=== PATIENT | female | born 1975 | race Caucasian/White ===

== ENCOUNTER 2022-07-20 13:15 | Inpatient (IN) | payer MEDICAID, SELFPAY ==
[2022-07-20 13:18] VITALS: BP 155/104; PULSE 109; RESP 18; TEMP 36.7; O2SAT 100; BMI 20.9
[2022-07-20] MEDS: LORazepam 1 MG TABLET 2 MG PO (13:44)
--- NOTE | 2022-07-20 13:45 | ED.GENADULT ---
HPI - General Adult General Chief complaint: Psychiatric Symptoms Stated complaint: crisis Time Seen by Provider: 07/20/22 13:44 Source: patient Mode of arrival: ambulatory Limitations: no limitations History of Present Illness HPI narrative: Patient is a 46 year old assigned female at with a history of anxiety presenting to the emergency department today with increased anxiety. Patient states that she feels like cannot do anything right and although she doesn't have any plan to kill herself, if she , she wouldn't care. Patient denies any dizziness, lightheadedness, abdominal pain, nausea, vomiting, fever, chills, blurry vision, double vision, loss of vision, chest pain, difficulty breathing, shortness of breath, back pain, night sweats, pain with urination, increased urinary frequency, increased urinary urgency, blood in her urine or stool, syncope or a near syncopal episode, recent trauma or falls, bowel incontinence, bladder incontinence, bowel retention, bladder retention, or any other complaints at this time. Onset (ago): day(s) Severity: mild Severity scale (1-10): 3 Relieving factors: none Exacerbating factors: none Associated symptoms: denies other symptoms Treatments prior to arrival: none Related Data Home Medications Medication Instructions Recorded Confirmed citalopram 20 mg tablet (Celexa) 1 tab PO DAILY 07/20/22 07/20/22 clonazepam 0.5 mg tablet 2 tab PO BEDTIME PRN Anxiety 07/20/22 07/20/22 dextroamphetamine-amphetamine 20 10 mg PO NEEDED PRN Outbreak 07/20/22 07/20/22 mg tablet dextroamphetamine-amphetamine 20 20 mg PO DAILY 07/20/22 07/20/22 mg tablet Allergies Allergy/AdvReac Type Severity Reaction Status Date / Time amoxicillin Allergy Intermediate Rash Verified 07/20/22 13:21 Review of Systems Constitutional: Constitutional: Reports no additional constitutional complaints, Denies chills, Denies fever(s) and Denies night sweats Eyes: Eyes: Reports no additional eye complaints, Denies blurry vision, Denies change in vision, Denies diplopia, Denies eye discharge, Denies loss of vision and Denies eye pain ENT: Denies dizziness Cardiovascular: Cardiovascular: Reports no additional cardiovascular complaints, Denies chest pain, Denies lightheadedness, Denies Loss of Consciousness and Denies dyspnea Respiratory: Respiratory: Reports no additional respiratory complaints and Denies dyspnea Gastrointestinal: Gastrointestinal: Reports no additional gastrointestinal complaints, Denies abdominal pain, Denies melena, Denies hematochezia, Denies change in bowel habits and Denies change in stool character Genitourinary: Genitourinary: Denies hematuria, Denies urinary frequency, Denies dysuria, Denies urinary incontinence, Denies urinary hesitancy and Denies urinary urgency Musculoskeletal: Musculoskeletal: Reports no additional musculoskeletal complaints, Denies numbness and Denies tingling Neurologic: Denies dizziness, Denies loss of vision, Denies numbness and Denies tingling Psychiatric: Psychiatric: Reports no additional psychiatric complaints Endocrine: Endocrine: Reports no additional endocrine complaints Hematologic/Lymphatic: Hematologic/Lymphatic: Reports no additional hematologic/lymphatic complaints Allergic/Immunologic: Allergic/Immunologic: Reports no additional allergic/immunologic complaints PMFSH Past Medical History Attestation statement: The following information was validated with the patient. Source: old records reviewed Social History Social History Smoked in Last 30 Days: No Use of substances other than those prescribed or required for medical reasons: No Physical Exam ED Vital Signs: Vital Signs - 24 hr 07/20/22 13:18 07/20/22 14:00 Temperature 98.0 F Pulse Rate 109 H Respiratory Rate 18 16 Blood Pressure 155/104 H Pulse Oximetry 100 Oxygen Delivery Method Room Air BMI result Body Mass Index 20.9 Const General: cooperative, no acute distress, alert and awake Nutritional Appearance: well nourished Orientation/consciousness: patient oriented x3 Limitations: no limitations [facility] Head: Yes normal to inspection and Yes atraumatic Ears: hearing grossly normal bilaterally and external ears normal General nose exam: Normal external nose present, no nasal discharge noted and no epistaxis Face and sinus: Yes normal facial exam, No abrasion and No laceration Mouth: Normal oral and palatal mucosa present, no drooling and no muffled voice Eyes General: appearance normal, both eyes and all related structures Periorbital: periorbital findings normal Eyelids: Yes eyelids normal Conjunctivae: conjunctivae normal Pupils: Equal, round and reactive pupils present EOM: EOMs intact bilaterally Neck Neck: Yes normal visual inspection, Yes full ROM and Yes no lymphadenopathy Chest Chest palpation & inspection: normal inspection of the chest Resp Effort & Inspection: normal respiratory effort and able to speak in complete sentences Auscultation: clear to auscultation bilaterally Cardio Rate: regular rate Rhythm: regular rhythm GI Inspection: Yes normal to inspection Neuro General: patient oriented x3 and moves all extremities Cranial nerves: Yes Equal, round and reactive pupils present Cognition (Neuro): normal cognition Motor exam (neuro): 5/5 motor strength present throughout Sensory Exam: Normal double simultaneous stimulation for sensation Coordination: [id number] test normal Psych Appearance: grossly normal Mental Status: mental status grossly normal Affect: Anxious affect present Attitude: cooperative Thought process: Normal thought process present Thought content: Normal thought content present Insight: Good insight present (Psych) Medications Administered Discontinued Medications Generic Name Dose Route Start Last Admin Trade Name Freq PRN Reason Stop Dose Admin Lorazepam 2 mg 07/20/22 13:21 07/20/22 13:44 Lorazepam 1 Mg Tablet PO 07/20/22 13:22 2 mg ONCE ONE Administration Medical Decision Making MDM Narrative Medical decision making narrative: Patient is a 46 year old assigned female at with a history of anxiety presenting to the emergency department today with increased anxiety. Patient's physical exam showed an anxious individual. Patient's blood work was unremarkable. I explained my physical exam findings as well as all test results to the patient. I answered all questions asked by the patient. Patient is awaiting evalution by [facility]. Medical Records Medical records reviewed: Yes I reviewed the patient's medical records. Lab Data Lab results reviewed: Yes I reviewed the patient's lab results. Result diagrams: 07/20/22 14:11 07/20/22 14:11 Labs: Lab Results 07/20/22 07/20/22 07/20/22 Range/Units 13:58 13:58 14:11 WBC 8.0 (4.8-10.8) X10*3/uL RBC 4.29 (4.20-5.50) X10*6/uL Hgb 13.2 (12.0-16.0) g/dl Hct 37.5 (37.0-47.0) % MCV 87.4 (80.0-98.0) fL MCH 30.8 (27.0-33.0) pg MCHC 35.2 H (31.0-35.0) g/dl RDW 12.4 (11.0-16.0) % Plt Count 205 (160-400) X10*3/uL MPV 10.0 (9.4-12.3) fL Immature Gran % (Auto) 0.3 (0.0-0.4) % Neut % (Auto) 75.9 H (45-73) % Lymph % (Auto) 13.9 L (20-40) % Spink % (Auto) 8.6 (2-11) % Eos % (Auto) 0.9 (0-4) % Baso % (Auto) 0.4 (0-2) % Lymph # (Auto) 1.1 L (1.2-4.9) X10*3/uL Spink # (Auto) 0.7 (0.1-1.2) X10*3/uL Eos # (Auto) 0.1 (0.0-0.4) X10*3/uL Baso # (Auto) 0.0 (0.0-0.2) X10*3/uL Abs Immat Gran (auto) 0.02 (0.00-0.03) X10*3/uL Absolute Neuts (auto) 6.1 (2.0-8.3) x10*3/uL Absolute Nucleated RBC 0.000 (0.0-0.012) X10*3/uL Nucleated RBC % (auto) 0.0 (0.0-0.2) /100WBC Sodium (135-145) mmol/L Potassium (3.3-5.1) mmol/L Chloride (96-108) mmol/L Carbon Dioxide (22-29) mmol/L Anion Gap (12-20) BUN (9-16) mg/dL Creatinine (0.5-1.4) mg/dL Estim Creat Clear Calc Estimated GFR Random Glucose (60-115) mg/dL Calcium (8.4-10.2) mg/dL Total Bilirubin (0.0-1.0) mg/dL AST (5-31) U/L ALT (0-31) U/L Alkaline Phosphatase (39-117) U/L Total Protein (6.5-8.0) g/dL Albumin (3.5-5.0) g/dL Urine Test NEGATIVE (NEGATIVE) Salicylates (15-30) mg/dL Urine Opiates Screen Not Detected (Not Detect) Urine Fentanyl Screen Not Detected (Not Detect) Acetaminophen (<30) mcg/mL Ur Barbiturates Screen Not Detected (Not Detect) Ur Phencyclidine Scrn Not Detected (Not Detect) Ur Amphetamines Screen POSITIVE H (Not Detect) U Benzodiazepines Scrn Not Detected (Not Detect) Urine Cocaine Screen Not Detected (Not Detect) U Marijuana (THC) Screen POSITIVE H (Not Detect) Ethyl Alcohol mg/dL COVID-19 (TIGIST) (Negative) COVID-19 Clin Com 07/20/22 07/20/22 Range/Units 14:11 14:17 WBC (4.8-10.8) X10*3/uL RBC (4.20-5.50) X10*6/uL Hgb (12.0-16.0) g/dl Hct (37.0-47.0) % MCV (80.0-98.0) fL MCH (27.0-33.0) pg MCHC (31.0-35.0) g/dl RDW (11.0-16.0) % Plt Count (160-400) X10*3/uL MPV (9.4-12.3) fL Immature Gran % (Auto) (0.0-0.4) % Neut % (Auto) (45-73) % Lymph % (Auto) (20-40) % Spink % (Auto) (2-11) % Eos % (Auto) (0-4) % Baso % (Auto) (0-2) % Lymph # (Auto) (1.2-4.9) X10*3/uL Spink # (Auto) (0.1-1.2) X10*3/uL Eos # (Auto) (0.0-0.4) X10*3/uL Baso # (Auto) (0.0-0.2) X10*3/uL Abs Immat Gran (auto) (0.00-0.03) X10*3/uL Absolute Neuts (auto) (2.0-8.3) x10*3/uL Absolute Nucleated RBC (0.0-0.012) X10*3/uL Nucleated RBC % (auto) (0.0-0.2) /100WBC Sodium 140 (135-145) mmol/L Potassium 3.5 (3.3-5.1) mmol/L Chloride 103 (96-108) mmol/L Carbon Dioxide 28 (22-29) mmol/L Anion Gap 13 (12-20) BUN 10 (9-16) mg/dL Creatinine 0.82 (0.5-1.4) mg/dL Estim Creat Clear Calc 93.4 Estimated GFR > 60 Random Glucose 93 (60-115) mg/dL Calcium 8.5 (8.4-10.2) mg/dL Total Bilirubin 0.6 (0.0-1.0) mg/dL AST 16 (5-31) U/L ALT 13 (0-31) U/L Alkaline Phosphatase 62 (39-117) U/L Total Protein 7.1 (6.5-8.0) g/dL Albumin 4.3 (3.5-5.0) g/dL Urine Test (NEGATIVE) Salicylates < 5.0 L (15-30) mg/dL Urine Opiates Screen (Not Detect) Urine Fentanyl Screen (Not Detect) Acetaminophen < 1 (<30) mcg/mL Ur Barbiturates Screen (Not Detect) Ur Phencyclidine Scrn (Not Detect) Ur Amphetamines Screen (Not Detect) U Benzodiazepines Scrn (Not Detect) Urine Cocaine Screen (Not Detect) U Marijuana (THC) Screen (Not Detect) Ethyl Alcohol < 10 mg/dL COVID-19 (TIGIST) Negative (Negative) COVID-19 Clin Com See Note Discharge Plan Discharge Clinical Impression: Acute anxiety Patient Disposition: Still a Patient Prescriptions: No Action clonazepam 0.5 mg tablet 2 tab PO BEDTIME PRN (Reason: Anxiety) citalopram [Celexa] 20 mg tablet 1 tab PO DAILY dextroamphetamine-amphetamine 20 mg tablet 10 mg PO NEEDED MDD 10 PRN (Reason: Outbreak) dextroamphetamine-amphetamine 20 mg tablet 20 mg PO DAILY
[2022-07-20 14:00] VITALS: RESP 16
[2022-07-20 14:24] LABS: Amphetamine Screen Urine POSITIVE (Not Detect); Barbiturates, Urine Not Detected (Not Detect); Benzodiazepines Screen Urine Not Detected (Not Detect); Cannabinoid Screen Urine POSITIVE (Not Detect); Cocaine Screen Urine Not Detected (Not Detect); Fentanyl, urine Not Detected (Not Detect); Opiate Screen Urine Not Detected (Not Detect); Phencyclidine Screen Urine Not Detected (Not Detect)
[2022-07-20 14:25] LABS: UPreg QC Valid YES; Urine Pregnancy NEGATIVE (NEGATIVE)
[2022-07-20 14:26] LABS: MANUAL DIFF FLAG NO
[2022-07-20 14:39] LABS: Basophils Percent Auto 0.4 % (0-2); Eosinophils Absolute Auto 0.1 X10*3/uL (0.0-0.4); Eosinophils Percent Auto 0.9 % (0-4); Hematocrit 37.5 % (37.0-47.0); Hemoglobin 13.2 g/dl (12.0-16.0); Imm Gran Abs Auto 0.02 X10*3/uL (0.00-0.03); Imm Gran Pct Auto 0.3 % (0.0-0.4); Lymphocytes Absolute Auto 1.1 X10*3/uL (1.2-4.9); Lymphocytes Percent Auto 13.9 % (20-40); Mean Corpuscular HGB Conc 35.2 g/dl (31.0-35.0); Mean Corpuscular Hemoglobin 30.8 pg (27.0-33.0); Mean Corpuscular Volume 87.4 fL (80.0-98.0); Monocytes Absolute Auto 0.7 X10*3/uL (0.1-1.2); Monocytes Percent Auto 8.6 % (2-11); Neutrophils Absolute Auto 6.1 x10*3/uL (2.0-8.3); Neutrophils Percent Auto 75.9 % (45-73); Platelet Count 205 X10*3/uL (160-400); Red Blood Count 4.29 X10*6/uL (4.20-5.50); Red Cell Distribution Width 12.4 % (11.0-16.0)
[2022-07-20 14:51] LABS: Acetaminophen LAB < 1 mcg/mL (<30); Alanine Aminotransferase 13 U/L (0-31); Albumin Level 4.3 g/dL (3.5-5.0); Alkaline Phosphatase 62 U/L (39-117); Anion Gap 13 (12-20); Aspartate Amino Transferase 16 U/L (5-31); Bilirubin Total 0.6 mg/dL (0.0-1.0); Blood Urea Nitrogen 10 mg/dL (9-16); Calcium 8.5 mg/dL (8.4-10.2); Carbon Dioxide 28 mmol/L (22-29); Chloride 103 mmol/L (96-108); Creatinine Clr Calc Pharmacy 93.4; Estimated Glomerular Filt Rate > 60; Ethanol < 10 mg/dL; Glucose Random 93 mg/dL (60-115); Potassium 3.5 mmol/L (3.3-5.1); Salicylate < 5.0 mg/dL (15-30); Sodium 140 mmol/L (135-145); Total Protein 7.1 g/dL (6.5-8.0)
[2022-07-20 14:55] LABS: COVID-19 Test Negative (Negative); IDNOW Serial# BCCEAD1C
--- NOTE | 2022-07-20 16:57 | MHC.CARE ---
Pt's called asking for an update on pt. He reported pt has been very depressed and believes medications aren't effective. Pt reported to her that she wishes she was which was concerning for as he has never heard her speak in this manner. Pt's expressed that she is the nicest person i've ever been on a date with, that is why I put a ring on it. She is a ray of sunshine and typically such a happy person and the best step mom to my son . states he has never heard of any suicide attempt hx. Everyone loves her, she has very special friends and has been working at her job for 21 years . He states pt has been struggling with racing thoughts and although she has a therapy apt tomorrow her therapist encouraged her to come here if she wasn't feeling any better. Pt ask to call him for an update and is supportive in her seeking help.
--- NOTE | 2022-07-20 20:09 | PC.NURSE ---
Pts Kleber alexander, called for an update. Kleber updated on pts plan of care with pts verbal consent. Kleber can be reached at [phone].
[2022-07-20] MEDS: clonazePAM 1 MG TABLET PO (21:57)
--- NOTE | 2022-07-20 22:20 | PC.NURSE ---
Pt exhibited increased anxiety/panic attack. Reports unable to move hands. Bilateral radial pulses present. RR rate 26. Klonopin administered, verbal reassurance, and redirection provided with success. Pt reports I want be home with Kleber. Pt provided phone and called Kleber nunn) for positive support. Pt aware of plan of care.
--- NOTE | 2022-07-20 23:31 | ECG_ITS ---
Test Reason : MED CLEARANCE Blood Pressure : / mmHG Vent. Rate : 089 BPM Atrial Rate : 089 BPM P-R Int : 150 ms QRS Dur : 078 ms QT Int : 414 ms P-R-T Axes : 097 095 105 degrees QTc Int : 503 ms Suspect limb lead reversal, interpretation assumes no reversal Normal sinus rhythm Rightward axis Nonspecific ST and T wave abnormality Prolonged QT Abnormal ECG No previous ECGs available advise repeat study Referred By: David Clark Electronically Signed By:JOHNATHON PARKER MD
--- NOTE | 2022-07-20 23:32 | PC.NURSE ---
Nurse to nurse report provided to RN. Elizabeth Pt to be transferred to once EKG results are available per JORGE Johnson. Pt aware of plan of care.
[2022-07-20 23:50] VITALS: BP 122/84; PULSE 100; RESP 18; TEMP 36.2; O2SAT 98
[2022-07-21] MEDS: hydrOXYzine HCL 25 MG TABLET PO (00:33)
[2022-07-21] MEDS: traZODone HCL 50 MG TABLET PO (00:33)
--- NOTE | 2022-07-21 01:11 | PC.NURSE ---
pt signed a 3 day notice on 07/21/22. up on monday07/26/22
--- NOTE | 2022-07-21 01:55 | PC.ADMIT ---
PT is a 46 year old female, admitted to unit at 2350 by wheel chair on CV, (signed a 3 day notice on 07/21 up on 07/26) from [facility]. PT self presented to [facility] for increased depression and anxiety and vague SI. During admission interview PT tearful at times, PT stated that anxiety and depression are '10/10', PT states she 'feels safe on unit, but does not want to share a room.' PT denies A/V hallucinations. 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 PT had thyroid surgery in May. PT prosthetic leg checked for contraband and then given to PT. PT put on 1:1 due to prosthetic leg. PT tox screen + for THC and amphetamines. PT is Covid -, declined flu vaccine, and spiritual visit. PT currently asleep in room.
[2022-07-21 08:00] VITALS: BP 110/71; PULSE 103; TEMP 36.3
[2022-07-21] MEDS: Amphetamine Mixed Salts 20 MG TABLET PO (08:52)
[2022-07-21] MEDS: Escitalopram Oxalate 10 MG TABLET PO (08:52)
[2022-07-21 09:28] LABS: Estimated Average Glucose 97 mg/dL
[2022-07-21 09:30] LABS: Alanine Aminotransferase 13 U/L (0-31); Albumin Level 4.1 g/dL (3.5-5.0); Alkaline Phosphatase 53 U/L (39-117); Anion Gap 11 (12-20); Aspartate Amino Transferase 14 U/L (5-31); Bilirubin Total 0.9 mg/dL (0.0-1.0); Blood Urea Nitrogen 9 mg/dL (9-16); Calcium 8.1 mg/dL (8.4-10.2); Carbon Dioxide 27 mmol/L (22-29); Chloride 105 mmol/L (96-108); Cholesterol 168 mg/dL; Creatinine Clr Calc Pharmacy 99.5; Estimated Glomerular Filt Rate > 60; Glucose Fasting 90 mg/dL (60-99); HDL Cholesterol 59 mg/dL; LDL Cholesterol Calculated 86 mg/dl; Potassium 3.3 mmol/L (3.3-5.1); Sodium 140 mmol/L (135-145); Thyroid Stimulating Hormone 1.04 uIU/mL (0.32-4.0); Total Protein 6.8 g/dL (6.5-8.0); Triglycerides 115 mg/dL
[2022-07-21 09:41] LABS: Folate 17.1 ng/mL (> or = 4.0); Vitamin B12 327 pg/mL (200-900)
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
[2022-07-21 17:12] VITALS: BP 110/75; PULSE 104; RESP 16; TEMP 36.8; O2SAT 97
[2022-07-22 08:00] VITALS: BP 107/65; PULSE 98; TEMP 36.9
[2022-07-22] MEDS: Escitalopram Oxalate 10 MG TABLET PO (09:10)
[2022-07-22] MEDS: Amphetamine Mixed Salts 20 MG TABLET PO (09:11)
[2022-07-22] MEDS: hydrOXYzine HCL 25 MG TABLET PO (14:26)
--- NOTE | 2022-07-22 16:00 | HO.PSYCHPN ---
Subjective Subjective Date of Service: 07/22/22 Reason For Visit: SI Subjective Notes: Conditional Voluntary and 3 Day Healthcare Proxy: No Guardianship: No Medical Problems Affecting Mental Status: No Interim History: Met with pt and Vasu [facility]. Pt reviewed stressors and precipitants to admission. Several serious medical and psychosocial situations. Discussed potential interventions. Collateral communication with Dr. Hills for consultation. Validation of calcium dosing from Dr. Ricks's office [phone]. They request an updated Calcium and Albumin Level. Medication Compliance: Yes Side effects from medications: No Attending Groups: No Review of Systems Acute medical concerns: No Medical Review of Systems: unchanged Mental Status Exam Mental Status Exam Patient Appearance: Fatigued and Appropriate Patient Orientation: Person, Place, Time and Situation Level of Consciousness: Drowsy and Alert Patient Behavior: Talkative, Cooperative, Anxious, Fatigued, Distractible and Good Eye Contact Mood Description: Depressed and Anxious Affect Description: Anxious Patient Cognition Impaired: No Ability to Follow Directions: Good Speech Pattern: Spontaneous Speech Memory Description: Intact Hallucinations: None Delusions: Not Present Perceptual Disturbances: Depersonalization and Derealization Thought Process: Rumination Thought Content: positive for Circumstantial and positive for Perseveration Depressive Symptoms: Increased Anxiety and Thoughts of /Suicide Judgement: Fair Diagnostics Vital Signs (24Hr): Vital Signs - 24 hr 07/21/22 17:12 07/22/22 08:00 Temperature 98.2 F 98.4 F Pulse Rate 104 H 98 Respiratory Rate 16 Blood Pressure 110/75 107/65 Pulse Oximetry 97 Oxygen Delivery Method Room Air BMI result Body Mass Index 20.9 Labs Results: 07/20/22 14:11 07/21/22 08:17 Labs: Laboratory Results - last 48 hr 07/21/22 07/21/22 07/21/22 08:17 08:17 08:17 Sodium 140 Potassium 3.3 Chloride 105 Carbon Dioxide 27 Anion Gap 11 L BUN 9 Creatinine 0.77 Estim Creat Clear Calc 99.5 Estimated GFR > 60 Fasting Glucose 90 Estimat Average Glucose 97 Hemoglobin A1c % 5.0 Calcium 8.1 L Total Bilirubin 0.9 AST 14 ALT 13 Alkaline Phosphatase 53 Total Protein 6.8 Albumin 4.1 Triglycerides 115 Cholesterol 168 LDL Cholesterol, Calc 86 HDL Cholesterol 59 Vitamin B12 327 Folate 17.1 TSH 1.04 Medications Medications Current Medications Acetaminophen (Acetaminophen 325 Mg Tablet) 650 mg PO Q6H PRN PRN Reason: Headache/Pain Mild Scale (1-3) Al Hydroxide/Mg Hydroxide (Magnesium Hydrox/Alum Hydrox 30 Ml Oral.Susp) 30 ml PO Q6H PRN PRN Reason: Heartburn/Nausea Amphetamine/Dextroamphetamine (Amphetamine Mixed Salts 20 Mg Tablet) 10 mg PO ONCE PRN PRN Reason: DIRECTED Amphetamine/Dextroamphetamine (Amphetamine Mixed Salts 20 Mg Tablet) 20 mg PO DAILY [facility] Last Admin: 07/22/22 09:11 Dose: 20 mg Calcium Carbonate (Calcium Carbonate 500 Mg Tablet) 500 mg PO QID [facility] Last Admin: 07/22/22 12:24 Dose: 500 mg Clonazepam (Clonazepam 1 Mg Tablet) 1 mg PO BEDTIME PRN PRN Reason: Anxiety Last Admin: 07/20/22 21:57 Dose: 1 mg Escitalopram Oxalate (Escitalopram Oxalate 10 Mg Tablet) 10 mg PO DAILY [facility] Last Admin: 07/22/22 09:10 Dose: 10 mg Hydroxyzine HCl (Hydroxyzine Hcl 25 Mg Tablet) 25 mg PO Q6H PRN PRN Reason: Anxiety Last Admin: 07/22/22 14:26 Dose: 25 mg Magnesium Hydroxide (Milk Of Magnesia 30 Ml Oral.Susp) 30 ml PO DAILY PRN PRN Reason: Constipation Trazodone HCl (Trazodone Hcl 50 Mg Tablet) 50 mg PO BEDTIME PRN PRN Reason: Insomnia Last Admin: 07/21/22 00:33 Dose: 50 mg Allergies Allergies Allergy/AdvReac Type Severity Reaction Status Date / Time amoxicillin Allergy Intermediate Rash Verified 07/20/22 13:21 Assessment & Plan Assessment & Plan (1) Acute anxiety: Status: Acute Code(s): F41.9 - Anxiety disorder, unspecified (2) Major depressive disorder, recurrent severe without psychotic features: Status: Acute Code(s): F33.2 - Major depressive disorder, recurrent severe without psychotic features (3) PTSD (post-traumatic stress disorder): Status: Acute Code(s): F43.10 - Post-traumatic stress disorder, unspecified Plan 46 yo female, hx of depression, anxiety, SI with several medical and psychosocial stressors to manage at the current time. Plan: Continue current regime Collateral contact to providers for information and treatment planning. Out patient referral for psychotherapy. 07/22/22 Calcium, Albumin Increase Lexapro to 20 mg daily. Will begin a search for psychotherapist for pt. I spent minutes with the patient and/or on the patient floor today, greater than?50% of which was spent counseling/coordinating care. Patient educated on: therapeutic strategies Informed Consent: understands Reason for contiued inpatient stay Substantial Risk for: rapid decompensation
[2022-07-22 17:26] VITALS: BP 119/67; PULSE 98; TEMP 36.7; O2SAT 98
[2022-07-22] MEDS: traZODone HCL 50 MG TABLET PO (22:14)
[2022-07-22] MEDS: clonazePAM 1 MG TABLET PO (22:14)
[2022-07-23 08:00] VITALS: BP 114/68; PULSE 99; TEMP 37
[2022-07-23] MEDS: Escitalopram Oxalate 20 MG TABLET PO (08:41)
[2022-07-23] MEDS: Amphetamine Mixed Salts 20 MG TABLET PO (08:41)
[2022-07-23 09:30] LABS: Albumin Level 4.3 g/dL (3.5-5.0)
--- NOTE | 2022-07-23 13:47 | P.PNPSI_ITS ---
Subjective Subjective Date of Service: 07/23/22 Reason For Visit: SI Subjective Notes: 3 Day Interim History: Chart reviewed. Discussed with Nursing. Overall discussed at length significant stressors. Discussed her relationship, benjamin's children, recent medical issues and surgeries, feeling more depressed, less of a sense of humor, being angry at God, which is unusual for her. No active SI. Sleep is okay. Energy okay. Appetite okay. Regarding past medications has been on Prozac, Luvox, Zoloft, Wellbutrin and tricyclic antidepressant. Reported getting a rash in the past on generic citalopram. Would like to consider alternative medication to Lexapro. Will review in more detail tomorrow. Medication Compliance: Yes Side effects from medications: No Attending Groups: Intermittent Review of Systems Acute medical concerns: No Review of Systems Review of Systems nil acute Mental Status Exam Mental Status Exam Narrative: Pleasant. Engaged. Articulate. Verbose. Depressed and tearful at times. Also utilizes humor as a defense. No active SI. Does have some intermittent hopelessness. No HI. No agitation or psychosis. Insight and judgment good Diagnostics Vital Signs (24Hr): Vital Signs - 24 hr 07/22/22 17:26 07/23/22 08:00 Temperature 98.1 F 98.6 F Pulse Rate 98 99 Blood Pressure 119/67 114/68 Pulse Oximetry 98 Oxygen Delivery Method Room Air BMI result Body Mass Index 20.9 Labs Results: 07/20/22 14:11 07/21/22 08:17 Labs: Laboratory Results - last 48 hr 07/23/22 08:24 Calcium 9.0 D Albumin 4.3 Medications Medications Current Medications Acetaminophen (Acetaminophen 325 Mg Tablet) 650 mg PO Q6H PRN PRN Reason: Headache/Pain Mild Scale (1-3) Al Hydroxide/Mg Hydroxide (Magnesium Hydrox/Alum Hydrox 30 Ml Oral.Susp) 30 ml PO Q6H PRN PRN Reason: Heartburn/Nausea Amphetamine/Dextroamphetamine (Amphetamine Mixed Salts 20 Mg Tablet) 10 mg PO ONCE PRN PRN Reason: DIRECTED Amphetamine/Dextroamphetamine (Amphetamine Mixed Salts 20 Mg Tablet) 20 mg PO DAILY [facility] Last Admin: 07/23/22 08:41 Dose: 20 mg Calcium Carbonate (Calcium Carbonate 500 Mg Tablet) 500 mg PO QID [facility] Last Admin: 07/23/22 08:41 Dose: 500 mg Clonazepam (Clonazepam 1 Mg Tablet) 1 mg PO BEDTIME PRN PRN Reason: Anxiety Last Admin: 07/22/22 22:14 Dose: 1 mg Escitalopram Oxalate (Escitalopram Oxalate 20 Mg Tablet) 20 mg PO DAILY [facility] Last Admin: 07/23/22 08:41 Dose: 20 mg Hydroxyzine HCl (Hydroxyzine Hcl 25 Mg Tablet) 25 mg PO Q6H PRN PRN Reason: Anxiety Last Admin: 07/22/22 14:26 Dose: 25 mg Magnesium Hydroxide (Milk Of Magnesia 30 Ml Oral.Susp) 30 ml PO DAILY PRN PRN Reason: Constipation Trazodone HCl (Trazodone Hcl 50 Mg Tablet) 50 mg PO BEDTIME PRN PRN Reason: Insomnia Last Admin: 07/22/22 22:14 Dose: 50 mg Allergies Allergies Allergy/AdvReac Type Severity Reaction Status Date / Time amoxicillin Allergy Intermediate Rash Verified 07/20/22 13:21 Assessment & Plan Assessment & Plan (1) Acute anxiety: Status: Acute Code(s): F41.9 - Anxiety disorder, unspecified (2) Major depressive disorder, recurrent severe without psychotic features: Status: Acute Code(s): F33.2 - Major depressive disorder, recurrent severe without psychotic features (3) PTSD (post-traumatic stress disorder): Status: Acute Code(s): F43.10 - Post-traumatic stress disorder, unspecified Plan 46 yo female, hx of depression, anxiety, SI with several medical and psyc hosocial stressors to manage at the current time. Plan: Continue current regime Collateral contact to providers for information and treatment planning. Out patient referral for psychotherapy. 07/22/22 Calcium, Albumin Increase Lexapro to 20 mg daily. Will begin a search for psychotherapist for pt. 07/23/22: past medications has been on Prozac, Luvox, Zoloft, Wellbutrin and tricyclic antidepressant. Reported getting a rash in the past on generic citalopram. Would like to consider alternative medication to Lexapro. Will review in more detail tomorrow. I spent minutes with the patient and/or on the patient floor today, greater than?50% of which was spent counseling/coordinating care. Reason for contiued inpatient stay Substantial Risk for: rapid decompensation
[2022-07-23] MEDS: hydrOXYzine HCL 25 MG TABLET PO ×2 (14:07→20:47)
[2022-07-23 16:33] VITALS: BP 111/76; PULSE 109; RESP 18; TEMP 36.2; O2SAT 99
[2022-07-23] MEDS: clonazePAM 1 MG TABLET PO (20:19)
[2022-07-23] MEDS: traZODone HCL 50 MG TABLET PO (20:47)
[2022-07-24 08:00] VITALS: BP 116/66; PULSE 91; TEMP 36.6
[2022-07-24] MEDS: Escitalopram Oxalate 20 MG TABLET PO (09:32)
[2022-07-24] MEDS: Amphetamine Mixed Salts 20 MG TABLET PO (09:32)
--- NOTE | 2022-07-24 11:22 | HO.PSYCHPN ---
Subjective Subjective Date of Service: 07/24/22 Reason For Visit: SI Interim History: No significant events since yesterday. Continues to feel depressed and anxious. Reviewed medications and will start Effexor as augmentation strategy. Risks and benefits discussed. Also reading a book mindfulness for beginners. Sleep okay. No SI. No HI. Taking care of ADLs Medication Compliance: Yes Side effects from medications: No Attending Groups: Intermittent Review of Systems Acute medical concerns: No Review of Systems Review of Systems nil acute Mental Status Exam Mental Status Exam Narrative: Pleasant. Engaged. Articulate. Verbose. Depressed and tearful at times, but slightly less than yesterday. Also utilizes humor as a defense. No active SI. Does have some intermittent hopelessness. No HI. No agitation or psychosis. Insight and judgment good Diagnostics Vital Signs (24Hr): Vital Signs - 24 hr 07/23/22 16:33 Temperature 97.2 F Pulse Rate 109 H Respiratory Rate 18 Blood Pressure 111/76 Pulse Oximetry 99 Oxygen Delivery Method Room Air BMI result Body Mass Index 20.9 Labs Results: 07/20/22 14:11 07/21/22 08:17 Labs: Laboratory Results - last 48 hr 07/23/22 08:24 Calcium 9.0 D Albumin 4.3 Medications Medications Current Medications Acetaminophen (Acetaminophen 325 Mg Tablet) 650 mg PO Q6H PRN PRN Reason: Headache/Pain Mild Scale (1-3) Al Hydroxide/Mg Hydroxide (Magnesium Hydrox/Alum Hydrox 30 Ml Oral.Susp) 30 ml PO Q6H PRN PRN Reason: Heartburn/Nausea Amphetamine/Dextroamphetamine (Amphetamine Mixed Salts 20 Mg Tablet) 10 mg PO ONCE PRN PRN Reason: DIRECTED Amphetamine/Dextroamphetamine (Amphetamine Mixed Salts 20 Mg Tablet) 20 mg PO DAILY [facility] Last Admin: 07/24/22 09:32 Dose: 20 mg Calcium Carbonate (Calcium Carbonate 500 Mg Tablet) 500 mg PO QID [facility] Last Admin: 07/24/22 09:32 Dose: 500 mg Clonazepam (Clonazepam 1 Mg Tablet) 1 mg PO BEDTIME PRN PRN Reason: Anxiety Last Admin: 07/23/22 20:19 Dose: 1 mg Escitalopram Oxalate (Escitalopram Oxalate 20 Mg Tablet) 20 mg PO DAILY [facility] Last Admin: 07/24/22 09:32 Dose: 20 mg Hydroxyzine HCl (Hydroxyzine Hcl 25 Mg Tablet) 25 mg PO Q6H PRN PRN Reason: Anxiety Last Admin: 07/23/22 20:47 Dose: 25 mg Magnesium Hydroxide (Milk Of Magnesia 30 Ml Oral.Susp) 30 ml PO DAILY PRN PRN Reason: Constipation Trazodone HCl (Trazodone Hcl 50 Mg Tablet) 50 mg PO BEDTIME PRN PRN Reason: Insomnia Last Admin: 07/23/22 20:47 Dose: 50 mg Venlafaxine HCl (Venlafaxine Hcl Er 75 Mg Cap.Er.24h) 75 mg PO DAILY [facility] Allergies Allergies Allergy/AdvReac Type Severity Reaction Status Date / Time amoxicillin Allergy Intermediate Rash Verified 07/20/22 13:21 Assessment & Plan Assessment & Plan (1) Acute anxiety: Status: Acute Code(s): F41.9 - Anxiety disorder, unspecified (2) Major depressive disorder, recurrent severe without psychotic features: Status: Acute Code(s): F33.2 - Major depressive disorder, recurrent severe without psychotic features (3) PTSD (post-traumatic stress disorder): Status: Acute Code(s): F43.10 - Post-traumatic stress disorder, unspecified Plan 46 yo female, hx of depression, anxiety, SI with several medical and psychosocial stressors to manage at the current time. Plan: Continue current regime Collateral contact to providers for information and treatment planning. Out patient referral for psychotherapy. 07/22/22 Calcium, Albumin Increase Lexapro to 20 mg daily. Will begin a search for psychotherapist for pt. 07/23/22: past medications has been on Prozac, Luvox, Zoloft, Wellbutrin and tricyclic antidepressant. Reported getting a rash in the past on generic citalopram. Would like to consider alternative medication to Lexapro. Will review in more detail tomorrow. 07/24/2022: Start Effexor 75 mg I spent minutes with the patient and/or on the patient floor today, greater than?50% of which was spent counseling/coordinating care. Reason for contiued inpatient stay Substantial Risk for: inability to function
[2022-07-24] MEDS: Venlafaxine HCl ER 75 MG CAP.ER.24H PO (13:32)
[2022-07-24 18:00] VITALS: BP 120/84; PULSE 107; RESP 20; TEMP 36.6; O2SAT 99
[2022-07-24] MEDS: traZODone HCL 50 MG TABLET PO (20:46)
[2022-07-24] MEDS: clonazePAM 1 MG TABLET PO (20:46)
[2022-07-24] MEDS: hydrOXYzine HCL 25 MG TABLET PO (20:46)
[2022-07-25 08:00] VITALS: BP 122/71; PULSE 94; TEMP 36.2
[2022-07-25] MEDS: Venlafaxine HCl ER 75 MG CAP.ER.24H PO (08:31)
[2022-07-25] MEDS: Amphetamine Mixed Salts 20 MG TABLET PO (08:31)
[2022-07-25] MEDS: Escitalopram Oxalate 20 MG TABLET PO (08:31)
--- NOTE | 2022-07-25 16:46 | PM.PSYDC ---
DS: Providers Provider Date of Service: 07/25/22 Date of admission: 07/20/22 23:04 Date of discharge: 07/25/22 Primary care physician: Unknown Physician Admitting clinician: Neeru Saucedo Attending physician on admission: Titi Leach Attending physician on discharge: Titi Leach Discharging clinician: Neeru Saucedo DS: Diagnosis Discharge Diagnosis (1) Acute anxiety: Status: Acute (2) Major depressive disorder, recurrent severe without psychotic features: Status: Acute (3) PTSD (post-traumatic stress disorder): Status: Acute DS: Medications Discharge Medications Home Medications: Home Medications Medication Instructions Recorded Confirmed clonazepam 0.5 mg tablet 2 tab PO BEDTIME PRN Anxiety 07/20/22 07/20/22 dextroamphetamine-amphetamine 20 10 mg PO NEEDED PRN Outbreak 07/20/22 07/20/22 mg tablet dextroamphetamine-amphetamine 20 20 mg PO DAILY 07/20/22 07/20/22 mg tablet Previous Rx's Medication Instructions Recorded calcium carbonate 500 mg calcium 500 mg PO QID #0 tabs 07/25/22 (1,250 mg) tablet (Oyster Shell Calcium 500) escitalopram oxalate 20 mg tablet 20 mg PO DAILY #30 tabs 07/25/22 venlafaxine 75 mg capsule,extended 75 mg PO DAILY #30 caps 07/25/22 release 24 hr Mental Status Exam Mental Status Exam Patient Appearance: Fatigued and Appropriate Patient Orientation: Person, Place, Time and Situation Level of Consciousness: Drowsy and Alert Patient Behavior: Talkative, Cooperative, Anxious, Fatigued, Distractible and Good Eye Contact Mood Description: Apprehensive Affect Description: Apprehensive Patient Cognition Impaired: No Ability to Follow Directions: Good Speech Pattern: Spontaneous Speech Memory Description: Intact Hallucinations: None Delusions: Not Present Perceptual Disturbances: Depersonalization and Derealization Thought Process: Rumination Thought Content: positive for Circumstantial and positive for Perseveration Depressive Symptoms: Increased Anxiety Judgement: Good Data Data Completed and Pending Completed studies during hospitalization [Text1]: 07/20/22 07/20/22 07/20/22 13:58 13:58 14:11 WBC 8.0 RBC 4.29 Hgb 13.2 Hct 37.5 MCV 87.4 MCH 30.8 MCHC 35.2 H RDW 12.4 Plt Count 205 MPV 10.0 Immature Gran % (Auto) 0.3 Neut % (Auto) 75.9 H Lymph % (Auto) 13.9 L [place] % (Auto) 8.6 Eos % (Auto) 0.9 Baso % (Auto) 0.4 Lymph # (Auto) 1.1 L [place] # (Auto) 0.7 Eos # (Auto) 0.1 Baso # (Auto) 0.0 Abs Immat Gran (auto) 0.02 Absolute Neuts (auto) 6.1 Absolute Nucleated RBC 0.000 Nucleated RBC % (auto) 0.0 Sodium Potassium Chloride Carbon Dioxide Anion Gap BUN Creatinine Estim Creat Clear Calc Estimated GFR Random Glucose Fasting Glucose Estimat Average Glucose Hemoglobin A1c % Calcium Total Bilirubin AST ALT Alkaline Phosphatase Total Protein Albumin Triglycerides Cholesterol LDL Cholesterol, Calc HDL Cholesterol Vitamin B12 Folate TSH Urine Test NEGATIVE Salicylates Urine Opiates Screen Not Detected Urine Fentanyl Screen Not Detected Acetaminophen Ur Barbiturates Screen Not Detected Ur Phencyclidine Scrn Not Detected Ur Amphetamines Screen POSITIVE H U Benzodiazepines Scrn Not Detected Urine Cocaine Screen Not Detected U Marijuana (THC) Screen POSITIVE H Ethyl Alcohol COVID-19 ([facility]) COVID-19 Clin Com 07/20/22 07/20/22 07/21/22 14:11 14:17 08:17 WBC RBC Hgb Hct MCV MCH MCHC RDW Plt Count MPV Immature Gran % (Auto) Neut % (Auto) Lymph % (Auto) [place] % (Auto) Eos % (Auto) Baso % (Auto) Lymph # (Auto) [place] # (Auto) Eos # (Auto) Baso # (Auto) Abs Immat Gran (auto) Absolute Neuts (auto) Absolute Nucleated RBC Nucleated RBC % (auto) Sodium 140 140 Potassium 3.5 3.3 Chloride 103 105 Carbon Dioxide 28 27 Anion Gap 13 11 L BUN 10 9 Creatinine 0.82 0.77 Estim Creat Clear Calc 93.4 99.5 Estimated GFR > 60 > 60 Random Glucose 93 Fasting Glucose 90 Estimat Average Glucose Hemoglobin A1c % Calcium 8.5 8.1 L Total Bilirubin 0.6 0.9 AST 16 14 ALT 13 13 Alkaline Phosphatase 62 53 Total Protein 7.1 6.8 Albumin 4.3 4.1 Triglycerides 115 Cholesterol 168 LDL Cholesterol, Calc 86 HDL Cholesterol 59 Vitamin B12 Folate TSH 1.04 Urine Test Salicylates < 5.0 L Urine Opiates Screen Urine Fentanyl Screen Acetaminophen < 1 Ur Barbiturates Screen Ur Phencyclidine Scrn Ur Amphetamines Screen U Benzodiazepines Scrn Urine Cocaine Screen U Marijuana (THC) Screen Ethyl Alcohol < 10 COVID-19 ([facility]) Negative COVID-19 Clin Com See Note 07/21/22 07/21/22 07/23/22 08:17 08:17 08:24 WBC RBC Hgb Hct MCV MCH MCHC RDW Plt Count MPV Immature Gran % (Auto) Neut % (Auto) Lymph % (Auto) [place] % (Auto) Eos % (Auto) Baso % (Auto) Lymph # (Auto) [place] # (Auto) Eos # (Auto) Baso # (Auto) Abs Immat Gran (auto) Absolute Neuts (auto) Absolute Nucleated RBC Nucleated RBC % (auto) Sodium Potassium Chloride Carbon Dioxide Anion Gap BUN Creatinine Estim Creat Clear Calc Estimated GFR Random Glucose Fasting Glucose Estimat Average Glucose 97 Hemoglobin A1c % 5.0 Calcium 9.0 D Total Bilirubin AST ALT Alkaline Phosphatase Total Protein Albumin 4.3 Triglycerides Cholesterol LDL Cholesterol, Calc HDL Cholesterol Vitamin B12 327 Folate 17.1 TSH Urine Test Salicylates Urine Opiates Screen Urine Fentanyl Screen Acetaminophen Ur Barbiturates Screen Ur Phencyclidine Scrn Ur Amphetamines Screen U Benzodiazepines Scrn Urine Cocaine Screen U Marijuana (THC) Screen Ethyl Alcohol COVID-19 ([facility]) COVID-19 Clin Com DS: Summary Hospital Course Hospital Course: Admission to adult psychiatry for exacerbation of recurrent major depression, anxiety, PTSD and multiple psychosocial stressors. Lexapro was interchanged for Celexa, Venlafaxine, Klonopin, Adderall were continued. Pt utilized the milieu for therapy and support to process current issues and concerns prior to discharge. Time spent discussing smoking cessation with patient: 3 to 10 minutes Status at Discharge Functional status at discharge: independent ambulation Overall status at discharge: patient is progressing back to baseline Time Spent with Patient Time attestation: Total time spent providing and/or coordinating discharge services: 35 Time spent: Greater than 30 minutes Discharge Plan Discharge Anticipated Discharge Date/Time: 07/25/22 16:32 Patient Disposition: Home, Self-Care Discharge Diagnosis: PTSD Recurrent Major Depression, Severe Anxiety Referrals: Psychiatry Appointment (Dr Quiana Sommer) [Other] - 08/04/22 2:00 pm ([facility]LE[facility] Appointment via ZOOM on August 04 at 2pm, 08/04/22) Rodríguez John MD [Physician] - 08/02/22 1:30 pm (office ) Discharge Medications: New calcium carbonate [Oyster Shell Calcium 500] 500 mg calcium (1,250 mg) Tablet 500 mg PO QID Qty: 0 0RF escitalopram oxalate 20 mg Tablet 20 mg PO DAILY Qty: 30 0RF venlafaxine 75 mg capsule,extended release 24hr 75 mg PO DAILY Qty: 30 0RF Continued clonazepam 0.5 mg tablet 2 tab PO BEDTIME PRN (Reason: Anxiety) dextroamphetamine-amphetamine 20 mg tablet 10 mg PO NEEDED MDD 10 PRN (Reason: Outbreak) dextroamphetamine-amphetamine 20 mg tablet 20 mg PO DAILY Discontinued citalopram [Celexa] 20 mg tablet 1 tab PO DAILY Discharge Orders: Discharge Order (Routine); Ordered 07/25/22 Ordered By: Neeru Saucedo Diet: Advance to usual diet Activity on Discharge: As tolerated Stand Alone Forms: Patient Portal Discharge page, Community Support Care Plan Goals: Maintain mood and safe behaviors Take medications as directed Practice coping skills Continue with out patient providers Health Concerns: Stable mood and behaviors Plan of Treatment: Follow up with out patient providers Take medications as directed Assessment: non suicidal, non homicidal, non psychotic Discharge Date/Time: 07/25/22 14:55
== END 2022-07-25 14:55 | disposition home or self-care (01) | DRG 751 ==
LOC: HO.ED 19:47 → HO.PM5 23:08
PROVIDERS: Physician Assistant Medical; Social Worker; Admitting Provider Psychiatry & Neurology Psychiatry; Emergency Provider Emergency Medicine Emergency Medical Services; Visit Provider Clinical Nurse Specialist Psychiatric/Mental Health, Adult
DX: F33.2 Major depressive disorder, recurrent severe without psychotic features (principal); R45.851 Suicidal ideations; F41.9 Anxiety disorder, unspecified; F43.10 Post-traumatic stress disorder, unspecified; Z20.822 Contact with and (suspected) exposure to COVID-19; Z88.0 Allergy status to penicillin; Z79.899 Other long term (current) drug therapy
CPT/HCPCS: 36415; 80053; 80061; 80143; 80179; 80307; 81025; 82040; 82077; 82310; 82607; 82746; 83036; 84443; 85025; 87635; 93005; 99285